=== PATIENT | female | born 1995 | race Caucasian/White ===

== ENCOUNTER 2025-03-12 07:38 | Inpatient (IN) | payer OTHER, SELFPAY ==
[2025-03-12] VITALS (23 sets, daily range): BP systolic 121–147; BP diastolic 71–93; PULSE 78–115; RESP 16–18; TEMP 36.9–37.6; O2SAT 97–98; BMI 26.8
[2025-03-12 07:38] LABS: ROM Internal Control Test YES-OK TO RESULT pt. (Internal QC)
[2025-03-12 07:39] LABS: ROM Patient Test POSITIVE (Negative); Record Kit Lot#, ROM+ K3294
[2025-03-12 08:26] LABS: Absolute Lymphocyte Count 1.07 X10^3/uL (0.83-4.51); Absolute Neutrophil Count 12.3 X10^3/uL (2.0-7.7); Basophil# 0.06 X10^3/uL; Basophil% 0.4 % (0-1); Eosinophil# 0.01 X10^3/uL; Eosinophils% 0.1 % (0-5); Hematocrit 34.9 % (37-47); Hemoglobin 12.3 g/dL (12.0-15.0); Lymphocyte # 1.07 X10^3/ul (0.83-4.51); Lymphocyte % 7.5 % (19-41); Mean Corp Hgb Conc 35.2 g/dL (32-36); Mean Corpuscular Hgb 30.3 pg (27.0-32.0); Mean Platelet Vol. 12.3 fl (6.2-12.0); Monocyte# 0.51 X10^3/uL; Monocyte% 3.6 % (0-10); NRBC Flagged by Analyzer 0 % (0-5); Neutrophil # 12.26 X10^3/uL (2.7-7.7); Neutrophil % 85.9 % (47-70); Platelet Count 136 K/mm3 (150-450); RBC Distribution Width CV 12.3 % (11.6-14.6); RBC Distribution Width SD 38.1 fl (35.1-43.9); Red Blood Count 4.06 M/mm3 (4.2-5.4); White Blood Count 14.3 K/mm3 (4.4-11.0)
[2025-03-12 12:05] LABS: Hepatitis C Antibody Nonreactive (Nonreactive)
[2025-03-12 12:09] LABS: HIV Nonreactive (Nonreactive); Syphilis Antibodies Nonreactive (Nonreactive)
--- NOTE | 2025-03-12 16:07 | PCM.PN.OB ---
Subjective Subjective Fore bag ruptured. Clear fluid. 7 cm. CAT I Objective Data Objective Data Vital Signs: Vital Signs Temp Pulse Resp BP Pulse Ox 98.8 F 104 H 18 147/73 H 98 03/12/25 15:26 03/12/25 15:27 03/12/25 15:26 03/12/25 15:27 03/12/25 14:28 Weight: 73.198 kg Body Mass Index (BMI) 26.8 Lab / Micro Data 03/12/25 07:55 Labs: Laboratory Results - last 24 hr 03/12/25 07:20: Vag Amniotic Fld Detect POSITIVE H 03/12/25 07:55: WBC 14.3 H, RBC 4.06 L, Hgb 12.3, Hct 34.9 L, MCV 86.0, MCH 30.3, MCHC 35.2, RDW Std Deviation 38.1, RDW Coeff of Sander 12.3, Plt Count 136 L, MPV 12.3 H, Immature Gran % (Auto) 2.500 H, Neut % (Auto) 85.9 H, Lymph % (Auto) 7.5 L, [place] % (Auto) 3.6, Eos % (Auto) 0.1, Baso % (Auto) 0.4, Absolute Neuts (auto) 12.3 H, Absolute Lymphs (auto) 1.07, Nucleated RBC % 0, Syphilis Total Ab Nonreactive, Hepatitis C Antibody Nonreactive, HIV 1&2 Antibody Nonreactive, Blood Type B NEGATIVE, Antibody Screen NEGATIVE Assessment & Plan (1) SROM (spontaneous rupture of membranes): (2) 41 weeks gestation of :
--- NOTE | 2025-03-12 16:09 | PCM.HP.OB ---
HPI - General General Date of Admission: 03/12/25 Date of Service: 03/12/25 HPI Narrative ANANYA MCCRACKEN, is a 29 F who presents SROM and labor. GBS negative Maternal Data Information Final GORDY: 03/03/25 Gestational age: 41+2 PFSH PFSH Medical History Cleft lip and cleft palate Home Medications ?Medication ?Instructions ?Recorded ?Last Taken ?Type vits no.130-ferrous fum tab 03/12/25 03/11/25 History 27 mg iron-folic acid 800 mcg tablet ( Vitamin) Allergy/AdvReac Type Severity Reaction Status Date / Time No Known Allergies Allergy Verified 03/12/25 07:20 Family History no significant family his Surgical History no surgical history Social History Smoking Status: Never smoker History Elective abortions Hx Para 0 Spontaneous abortions Hx # Term Pregnancies Ectopic pregnancies Hx # Pregnancies Multiple births # of living children NST FHR Rate Baby A Baseline: 145 Variability:: Moderate Accelerations:: 15 x 15 Decelerations:: None NST Reactive:: Yes ROS Constitutional Constitutional: Denies fatigue, fever(s) or malaise Eyes Eyes: Denies change in vision ENT HEENT: Denies dizziness or headache(s) Cardiovascular Cardiovascular: Denies chest pain, dyspnea or lightheadedness Respiratory/Chest Respiratory/Chest: Denies cough or dyspnea Gastrointestinal Gastrointestinal: Denies change in bowel habits Genitourinary Genitourinary: Denies burning urination or genital lesions Integumentary Integumentary: Denies rash Neurologic Neurologic: Denies confusion, dizziness, headache(s), numbness or weakness Vital Signs Vital Signs Vital Signs: 03/12/25 07:06 03/12/25 07:06 03/12/25 07:07 Temperature Temperature Source Temporal Pulse Rate 96 Respiratory Rate Blood Pressure 142/90 H BP Systolic 142 BP Diastolic 90 Pulse Ox 03/12/25 07:07 03/12/25 07:07 03/12/25 07:14 Temperature 99.1 F Temperature Source Pulse Rate Respiratory Rate 18 Blood Pressure 130/89 H BP Systolic 130 BP Diastolic 89 Pulse Ox 03/12/25 07:14 03/12/25 08:37 03/12/25 08:37 Temperature Temperature Source Pulse Rate 98 90 Respiratory Rate Blood Pressure 139/86 H BP Systolic 139 BP Diastolic 86 Pulse Ox 03/12/25 08:37 03/12/25 08:37 03/12/25 08:37 Temperature Temperature Source Temporal Pulse Rate 93 Respiratory Rate 16 Blood Pressure BP Systolic BP Diastolic Pulse Ox 03/12/25 08:37 03/12/25 08:37 03/12/25 09:31 Temperature 99.1 F Temperature Source Pulse Rate Respiratory Rate Blood Pressure 143/92 H BP Systolic 143 BP Diastolic 92 Pulse Ox 97 03/12/25 09:31 03/12/25 09:31 03/12/25 09:31 Temperature Temperature Source Temporal Pulse Rate 78 93 Respiratory Rate Blood Pressure BP Systolic BP Diastolic Pulse Ox 03/12/25 09:31 03/12/25 09:31 03/12/25 09:31 Temperature 98.9 F Temperature Source Pulse Rate Respiratory Rate 16 Blood Pressure BP Systolic BP Diastolic Pulse Ox 98 03/12/25 10:26 03/12/25 10:26 03/12/25 10:26 Temperature Temperature Source Temporal Pulse Rate 91 Respiratory Rate Blood Pressure 133/72 H BP Systolic 133 BP Diastolic 72 Pulse Ox 03/12/25 10:26 03/12/25 10:26 03/12/25 10:26 Temperature 98.6 F Temperature Source Pulse Rate Respiratory Rate 18 Blood Pressure BP Systolic BP Diastolic Pulse Ox 98 03/12/25 11:34 03/12/25 11:34 03/12/25 11:34 Temperature Temperature Source Pulse Rate 87 Respiratory Rate Blood Pressure 144/86 H BP Systolic 144 BP Diastolic 86 Pulse Ox 97 03/12/25 11:34 03/12/25 11:34 03/12/25 11:34 Temperature 99.5 F H Temperature Source Temporal Pulse Rate Respiratory Rate 16 Blood Pressure BP Systolic BP Diastolic Pulse Ox 03/12/25 12:35 03/12/25 12:35 03/12/25 12:35 Temperature Temperature Source Temporal Pulse Rate 90 Respiratory Rate Blood Pressure 127/85 H BP Systolic 127 BP Diastolic 85 Pulse Ox 03/12/25 12:35 03/12/25 12:35 03/12/25 13:17 Temperature 98.4 F Temperature Source Pulse Rate Respiratory Rate 16 Blood Pressure 132/87 H BP Systolic 132 BP Diastolic 87 Pulse Ox 03/12/25 13:17 03/12/25 13:18 03/12/25 13:18 Temperature Temperature Source Temporal Pulse Rate 86 Respiratory Rate 16 Blood Pressure BP Systolic BP Diastolic Pulse Ox 03/12/25 13:18 03/12/25 14:28 03/12/25 14:28 Temperature 99.1 F Temperature Source Pulse Rate 88 Respiratory Rate Blood Pressure BP Systolic BP Diastolic Pulse Ox 98 03/12/25 14:29 03/12/25 14:29 03/12/25 14:29 Temperature Temperature Source Temporal Pulse Rate 88 Respiratory Rate Blood Pressure 131/83 H BP Systolic 131 BP Diastolic 83 Pulse Ox 03/12/25 14:29 03/12/25 14:29 03/12/25 15:26 Temperature 98.8 F Temperature Source Temporal Pulse Rate Respiratory Rate 18 Blood Pressure BP Systolic BP Diastolic Pulse Ox 03/12/25 15:26 03/12/25 15:26 03/12/25 15:27 Temperature 98.8 F Temperature Source Pulse Rate Respiratory Rate 18 Blood Pressure 147/73 H BP Systolic 147 BP Diastolic 73 Pulse Ox 03/12/25 15:27 Temperature Temperature Source Pulse Rate 104 H Respiratory Rate Blood Pressure BP Systolic BP Diastolic Pulse Ox Weight Weight: 73.198 kg Body Mass Index (BMI) 26.8 Physical Exam Const alert and no apparent distress General Appearance: cooperative HEENT normocephalic Resp normal respiratory effort Cardio regular rate GI soft to palpation GI Narrative: gravid, nontender, appropriate for gestational age Extremity no calf tenderness General Extremity: edema Skin no wounds Rashes: No rashes noted Psych activity/motor behavior normal Labs Labs Labs: Blood Type B NEGATIVE Antibody Screen NEGATIVE Hct 34.9 % (37-47) L Hgb 12.3 g/dL (12.0-15.0) Syphilis Total Ab Nonreactive (Nonreactive) Hepatitis C Antibody Nonreactive (Nonreactive) HIV 1&2 Antibody Nonreactive (Nonreactive) Assessment & Plan (1) 41 weeks gestation of : (2) SROM (spontaneous rupture of membranes): PLAN: Plan Active management
[2025-03-12] MEDS: Oxytocin 15 Units/NS 250ml 15 UNITS/250 ML IV.SOLN 2 UNITS IV (21:08)
[2025-03-12] MEDS: Lactated Ringers 1,000 ML 50 ML IV (21:10)
[2025-03-13] VITALS (52 sets, daily range): BP systolic 92–138; BP diastolic 52–89; PULSE 89–136; RESP 14–18; TEMP 36.4–37.2; O2SAT 92–100
[2025-03-13] MEDS: Oxytocin 15 Units/NS 250ml 15 UNITS/250 ML IV.SOLN 334 UNITS IV (04:51)
[2025-03-13] MEDS: Methylergonovine 0.2 MG/ML Ampul IM (05:01)
[2025-03-13] MEDS: Oxytocin 10 UNITS/ML Vial IM (05:03)
[2025-03-13] MEDS: Morphine 4 MG/ML Syringe IV (05:05)
[2025-03-13] MEDS: Oxytocin 15 Units/NS 250ml 15 UNITS/250 ML IV.SOLN 999 UNITS IV (05:20)
--- NOTE | 2025-03-13 05:29 | OB.VAGDELI_ITS ---
Assessment & Plan (1) (spontaneous vaginal delivery): (2) hemorrhage: QUALIFIERS: hemorrhage type: third-stage Qualified Code(s): O72.0 - Third-stage hemorrhage Maternal Data Information Final GORDY: 03/03/25 Gestational age: 41+3 Vaginal Delivery Maternal Presentation Maternal Presentation: Active Labor and Spontaneous Rupture of Membranes Type of Induction: Amniotomy (rupture of forebag) Vaginal Delivery Information Procedure Performed: Spontaneous Vaginal Delivery Surgeon/Practitioner: Candice Burton Date of Procedure: 03/13/25 Pre-Procedure Diagnosis: Term Post-Procedure Diagnosis: Type of anesthesia: None Estimated Blood Loss: 1000 cc Time of Delivery: 04:46 Findings Description of procedure: Presented in labor with LOF. Progressed to 7 cm at which time a forebag was ruptured for clear fluid. She slowly progressed to complete and began pushing. She pushed for about 4 hours. The head delivered over an intact perineum. There was a cord around the neck x 1 loose. The cord was easily reduced. The anterior and posterior shoulders delivered easily followed by the rest of the body. The was placed on the maternal abdomen. The cord was clamped and cut. Cord blood was collected. The placenta was delivered with gentle tractions. There were no lacerations that needed repaired. Uterine bleeding was brisk. The uterus was massaged and cleared of all clots. Pitocin was opened and a dose given IM. She also received a dose of Methergine. The GWEN device was then placed in the the uterine cavity and attached to wall suction. 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
[2025-03-13 13:13] LABS: Absolute Lymphocyte Count 1.19 X10^3/uL (0.83-4.51); Absolute Neutrophil Count 15.7 X10^3/uL (2.0-7.7); Basophil# 0.07 X10^3/uL; Basophil% 0.4 % (0-1); Eosinophil# 0.01 X10^3/uL; Eosinophils% 0.1 % (0-5); Hematocrit 29.6 % (37-47); Hemoglobin 10.4 g/dL (12.0-15.0); Lymphocyte # 1.19 X10^3/ul (0.83-4.51); Lymphocyte % 6.4 % (19-41); Mean Corp Hgb Conc 35.1 g/dL (32-36); Mean Corpuscular Volume 85.3 fL (81-99); Mean Platelet Vol. 11.3 fl (6.2-12.0); Monocyte# 1.36 X10^3/uL; Monocyte% 7.3 % (0-10); NRBC Flagged by Analyzer 0 % (0-5); Neutrophil # 15.71 X10^3/uL (2.7-7.7); Neutrophil % 83.9 % (47-70); Platelet Count 159 K/mm3 (150-450); RBC Distribution Width CV 12.6 % (11.6-14.6); RBC Distribution Width SD 38.5 fl (35.1-43.9); Red Blood Count 3.47 M/mm3 (4.2-5.4); White Blood Count 18.7 K/mm3 (4.4-11.0)
[2025-03-13] MEDS: Rho(D) Immune Globulin 300 MCG (1500 Unit) Syringe IV (17:34)
[2025-03-13] MEDS: 0.9% Saline Lock 10 ML Syringe IV (17:35)
[2025-03-13] MEDS: Acetaminophen 500 MG Tablet 1000 MG PO (21:56)
[2025-03-14] VITALS (7 sets, daily range): BP systolic 105–119; BP diastolic 64–71; PULSE 85–103; RESP 16; TEMP 36.4–37.2; O2SAT 96–99
--- NOTE | 2025-03-14 08:17 | PCM.PN.OB ---
Subjective Subjective Doing well. Ambulating and voiding without difficulty. Mild lochia. Breast feeding. Objective Data Objective Data Vital Signs: Vital Signs Temp Pulse Resp BP Pulse Ox O2 Del Method 97.9 F 85 16 105/64 97 Room Air 03/14/25 03:48 03/14/25 03:48 03/14/25 03:48 03/14/25 03:48 03/13/25 15:45 03/14/25 03:48 Oxygen Delivery Method Room Air Weight: 73.198 kg Body Mass Index (BMI) 26.8 Intake & Output: Intake and Output for Last 24 Hours 03/12/25 03/13/25 03/14/25 23:59 23:59 23:59 Intake Total 1.5 / 1.5 0 / 0 Output Total 850 / 850 1308 / 1308 Balance -848.5 / -848.5 -1308 / -1308 Lab / Micro Data 03/13/25 13:00 Labs: Laboratory Results - last 24 hr 03/13/25 13:00: WBC 18.7 H, RBC 3.47 L, Hgb 10.4 L, Hct 29.6 L, MCV 85.3, MCH 30.0, MCHC 35.1, RDW Std Deviation 38.5, RDW Coeff of Sander 12.6, Plt Count 159, MPV 11.3, Immature Gran % (Auto) 1.900 H, Neut % (Auto) 83.9 H, Lymph % (Auto) 6.4 L, [place] % (Auto) 7.3, Eos % (Auto) 0.1, Baso % (Auto) 0.4, Absolute Neuts (auto) 15.7 H, Absolute Lymphs (auto) 1.19, Nucleated RBC % 0, Screen NEGATIVE, Baby's Blood Type B POSITIVE, Baby's ERICA NEGATIVE ROS Constitutional Constitutional: Denies headache(s) Cardiovascular Cardiovascular: Denies chest pain or dyspnea Gastrointestinal Gastrointestinal: Denies nausea or vomiting Genitourinary Genitourinary: Denies dysuria Physical Exam Const alert, oriented x3 and no apparent distress General Appearance: cooperative and comfortable Eyes PERRL and EOMs intact bilaterally Resp normal respiratory effort GI soft to palpation and non-tender Uterus Palpation: uterus fundus firm ( below umbilicus) Extremity normal to inspection and full ROM Neuro oriented x3 and CN's II-XII intact bilaterally Psych mental status grossly normal Assessment & Plan (1) (spontaneous vaginal delivery): PLAN: Plan possible discharge
[2025-03-14] MEDS: Acetaminophen 500 MG Tablet 1000 MG PO ×2 (09:37→22:23)
[2025-03-14] MEDS: Ibuprofen 600 MG Tablet PO (22:21)
[2025-03-15 02:54] VITALS: PULSE 84; O2SAT 97
[2025-03-15 02:58] VITALS: BP 106/54; PULSE 87; RESP 16; TEMP 36.4; O2SAT 97
[2025-03-15] MEDS: Acetaminophen 500 MG Tablet 1000 MG PO (05:46)
[2025-03-15] MEDS: Ibuprofen 600 MG Tablet PO (05:47)
--- NOTE | 2025-03-15 06:50 | PCM.PN.OB ---
Subjective Subjective Doing well. Ambulating and voiding without difficulty. Mild lochia. Breast and bottle feeding. Objective Data Objective Data Vital Signs: Vital Signs Temp Pulse Resp BP Pulse Ox O2 Del Method 97.6 F L 87 16 106/54 L 97 Room Air 03/15/25 02:58 03/15/25 02:58 03/15/25 02:58 03/15/25 02:58 03/15/25 02:58 03/15/25 02:58 Oxygen Delivery Method Room Air Weight: 73.198 kg Body Mass Index (BMI) 26.8 Intake & Output: Intake and Output for Last 24 Hours 03/13/25 03/14/25 03/15/25 23:59 23:59 23:59 Intake Total 0 / 0 Output Total 1308 / 1308 Balance -1308 / -1308 Lab / Micro Data 03/13/25 13:00 ROS Constitutional Constitutional: Denies headache(s) Cardiovascular Cardiovascular: Denies chest pain or dyspnea Gastrointestinal Gastrointestinal: Denies nausea or vomiting Genitourinary Genitourinary: Denies dysuria Physical Exam Const alert, oriented x3 and no apparent distress General Appearance: cooperative and comfortable Eyes PERRL and EOMs intact bilaterally Resp normal respiratory effort GI soft to palpation and non-tender Uterus Palpation: uterus fundus firm ( below umbilicus) Extremity normal to inspection and full ROM Neuro oriented x3 and CN's II-XII intact bilaterally Psych mental status grossly normal Assessment & Plan (1) hemorrhage: QUALIFIERS: hemorrhage type: third-stage Qualified Code(s): O72.0 - Third-stage hemorrhage (2) (spontaneous vaginal delivery): PLAN: Plan Discharge home
--- NOTE | 2025-03-15 06:50 | PCM.DC.SUM ---
Providers Date of Admission: 03/12/25 Date of Discharge: 03/15/25 Primary Care Physician: ANNAMARIA Haywood Reason For Visit: VAG Diagnosis Discharge Diagnosis (1) (spontaneous vaginal delivery): Status: Acute Code(s): O80 - Encounter for full-term uncomplicated delivery Plan possible discharge Medications at Discharge Home Medications vits no.130-ferrous fum 27 mg iron-folic acid 800 mcg tablet ( Vitamin) tab 03/12/25 Hospital Course Operations None Procedures None Summary of Care Provided Minutes Spent on Discharge: 20 Hospital Course: . hemorrhage with Methergine, Pitocin and JAZLYN Physical Exam Const alert and no apparent distress Narrative: Fundus firm, below umbilicus. Weight / BMI Weight Weight: 73.198 kg Body Mass Index (BMI) 26.8 ABG / Lab / Microbiology Data 03/13/25 13:00 D/C Instructions May resume sexual activity in: 6 weeks DC O2, CPAP, BIPAP Needs Home O2 Discharge instructions: No Please Follow Up With: Vanessa Villatoro MD When: Follow up with our office in 1-2 and 6 weeks or as needed. [phone] Meaningful Use Info Meaningful Use Meaningful Use Diagnoses (Choose all that apply): None applicable Ischemic Stroke Statin Dosing Therapy Reference: STATIN DOSE THERAPY REFERENCE: * Patients > 75 years receive moderate or high dose statin therapy. * Patients 75 years or YOUNGER should receive HIGH intensity statin dose unless contraindicated. You will be required to document reason for non-treatment if statin daily dose does not meet guidelines. HIGH DOSE STATIN THERAPY DAILY Atorvastatin > than or = to 40 mg Rosuvastatin > than or = to 20 mg Amlodipine + Atorvastatin > than or = to 2.5/40 mg Ezetimibe + Simvastatin 10/80 mg Simvastatin 80mg Discharge Plan Admission Admit Date/Time: 03/12/25 07:38 Primary Reason for Your Visit: labor Attending Provider: Candice Burton Primary Care Provider: Marilou Sal Discharge Orders/Prescriptions Prescriptions: Continued Vitamin 27 mg iron- 800 mcg tablet Referrals / Follow Up: Marilou Sal PA [Primary Care Provider] - Disposition Disposition (needs filled in before D/C Order can be placed): Home, Self Care
[2025-03-15 08:14] VITALS: BP 120/75; PULSE 102
[2025-03-15 08:15] VITALS: BP 120/75; PULSE 103; RESP 19; TEMP 36.3; O2SAT 98
== END 2025-03-15 09:30 | disposition home or self-care (01) | DRG 806 ==
LOC: WPOUT 07:42 → WP 07:42
PROVIDERS: Admitting Provider Obstetrics & Gynecology; PCP Physician Assistant; Visit Provider Obstetrics & Gynecology
DX: O48.0 Post-term pregnancy (principal); Z37.0 Single live birth; O72.0 Third-stage hemorrhage; O42.92 Full-term premature rupture of membranes, unspecified as to length of time between rupture and onset of labor; O69.81X0 Labor and delivery complicated by cord around neck, without compression, not applicable or unspecified; O77.0 Labor and delivery complicated by meconium in amniotic fluid; Z3A.41 41 weeks gestation of pregnancy
CPT/HCPCS: 59025; 59050; 84112; 85025; 85461; 86703; 86780; 86803; 86850; 86900; 86901; 90384; 99221; A4216; G0378; J2790; J2791